=== PATIENT | male | born 1955 | race Caucasian/White ===

== ENCOUNTER 2017-06-14 09:47 | Outpatient (CLI) | payer BC ==
[2017-06-14] MEDS ORDERED: METO25TA3 PO (13:31)
[2017-06-14] MEDS ORDERED: LOSA25TA3 PO (13:31)
[2017-06-14] MEDS ORDERED: SIMV10TA2 PO (13:31)
== END 2017-06-14 10:47 | disposition home or self-care (01) ==
LOC: SRD 09:47
PROVIDERS: ATTEND Family Medicine
DX: J90 Pleural effusion, not elsewhere classified (principal); J44.9 Chronic obstructive pulmonary disease, unspecified; Z98.890 Other specified postprocedural states
CPT/HCPCS: 71046-TC; 74018

== ENCOUNTER 2017-06-14 10:47 | Inpatient (IN) | payer BC ==
[~2017-06-14] VITALS: Ht 162.6 cm; Wt 65.3 kg
[2017-06-14 10:57] VITALS: BP_SYST 100
[2017-06-14] MEDS ORDERED: NACL 0.9% 1,000 ML IV ONE (11:15)
[2017-06-14 11:52] LABS: BASOPHILS # (AUTO) 0.1 K/uL (0.0-0.2); BASOPHILS % (AUTO) 1.4 % (0.0-2.0); EOSINOPHILS # (AUTO) 0.4 K/uL (0.0-0.4); EOSINOPHILS % (AUTO) 7.9 % (0.0-4.0); HEMATOCRIT 35.6 % (36-54); HEMOGLOBIN 11.4 g/dL (14.0-18.0); LYMPHOCYTES # (AUTO) 0.8 K/uL (1.0-5.5); LYMPHOCYTES % (AUTO) 14.7 % (20.5-51.5); MEAN CORPUSCULAR HEMOGLOBIN 26 pg (27-31); MEAN CORPUSCULAR HGB CONC 32 % (32-36); MEAN CORPUSCULAR VOLUME 81 fL (79.0-98.0); MONOCYTES # (AUTO) 0.7 K/uL (0.0-1.0); MONOCYTES % (AUTO) 12.7 % (1.7-9.3); NEUTROPHILS # (AUTO) 3.6 K/uL (1.8-7.7); NEUTROPHILS % (AUTO) 63.3 % (40.0-70.0); PLATELET COUNT (AUTO) 252 K/uL (130-430); RED BLOOD CELL COUNT(AUTO) 4.42 MIL/uL (4.2-6.2); RED CELL DISTRIBUTION WIDTH 14.2 % (9.0-15.0); WHITE BLOOD COUNT (AUTO) 5.6 K/uL (4.8-10.8)
[2017-06-14 11:53] LABS: CALCIUM 10.5 mg/dL (8.4-11.0); CREATININE 2.98 mg/dL (0.55-1.30); POTASSIUM 4.5 mmol/L (3.5-5.1)
[2017-06-14 11:56] LABS: INR 2.4 (0.80-1.20); PROTHROMBIN TIME 24.4 SECS (9.5-12.5)
[2017-06-14 11:57] LABS: ALBUMIN 2.8 g/dL (3.4-4.8); TOTAL BILIRUBIN 0.2 mg/dL (0.0-1.0)
[2017-06-14] MEDS ORDERED: METO25TA3 PO (13:31)
[2017-06-14] MEDS ORDERED: LOSA25TA3 PO (13:31)
[2017-06-14] MEDS ORDERED: SIMV10TA2 PO (13:31)
[2017-06-14] MEDS ORDERED: MORPHINE 2 MG/ML INJ. SYRINGE IVP PRN (13:45)
[2017-06-14] MEDS ORDERED: ONDANSETRON HCL 4 MG/2 ML VIAL IVP PRN (14:00)
[2017-06-14 14:24] LABS: FREE T4 (FREE THYROXINE) 0.8 ng/dL (0.6-1.6); PHOSPHORUS 5.9 mg/dL (2.7-4.5); THYROID STIMULATING HORMONE 5.24 uIu/mL (0.34-4.82)
[2017-06-14 14:38] VITALS: BP_SYST 116
[2017-06-14] MEDS: NACL 0.9% 1,000 ML IV SCH (16:19)
[2017-06-14] MEDS: MORPHINE 2 MG/ML INJ. SYRINGE IVP PRN (16:30)
[2017-06-14] MEDS ORDERED: IPRATROPIUM BROM 0.5 MG/2.5 ML VIAL.NEB (ATROVENT) INH PRN (17:00)
[2017-06-14] MEDS ORDERED: ALBUTEROL SULFATE 0.083% 2.5 MG/3 ML VIAL.NEB INH PRN (17:00)
[2017-06-14 17:43] LABS: BILIRUBIN,URINE NEGATIVE (NEGATIVE); BLOOD, URINE NEGATIVE (NEGATIVE); CLARITY/URINE CLEAR (CLEAR); COLOR,URINE YELLOW (YELLOW); GLUCOSE,URINE NEGATIVE (NEGATIVE); KETONES,URINE NEGATIVE (NEGATIVE); LEUKOCYTE ESTERASE ,URINE NEGATIVE (NEGATIVE); NITRITE, URINE NEGATIVE (NEGATIVE); PH,URINE 5.5 (5.0-8.0); PROTEIN URINE NEGATIVE (NEGATIVE); UROBILINOGEN,URINE 0.2 (0.2-1.0)
[2017-06-14] MEDS ORDERED: ALBUTEROL SULFATE 0.083% 2.5 MG/3 ML VIAL.NEB INH ONE (17:47)
[2017-06-14] MEDS ORDERED: IPRATROPIUM BROM 0.5 MG/2.5 ML VIAL.NEB (ATROVENT) INH ONE (17:48)
[2017-06-14 17:53] VITALS: BP_SYST 116
[2017-06-14 20:00] VITALS: BP_SYST 101
[2017-06-14] MEDS: IPRATROPIUM BROM 0.5 MG/2.5 ML VIAL.NEB (ATROVENT) INH SCH (20:55)
[2017-06-14] MEDS: ALBUTEROL SULFATE 0.083% 2.5 MG/3 ML VIAL.NEB INH SCH (20:55)
[2017-06-14] MEDS ORDERED: ALBUTEROL SULFATE 0.083% 2.5 MG/3 ML VIAL.NEB INH SCH (21:00)
[2017-06-14] MEDS: WARFARIN SODIUM 7.5 MG TABLET PO SCH (21:14)
[2017-06-14] MEDS: DOCUSATE SODIUM 100 MG CAPSULE PO SCH (21:15)
[2017-06-14] MEDS: ZOLPIDEM TARTRATE 5 MG TABLET PO PRN (21:15)
[2017-06-15 00:04] VITALS: BP_SYST 126
[2017-06-15 04:12] LABS: HEMOGLOBIN A1C 5.5 % (4.8-5.6)
[2017-06-15 06:21] LABS: BASOPHILS # (AUTO) 0.1 K/uL (0.0-0.2); BASOPHILS % (AUTO) 1.3 % (0.0-2.0); EOSINOPHILS # (AUTO) 0.4 K/uL (0.0-0.4); HEMATOCRIT 31.9 % (36-54); HEMOGLOBIN 10.1 g/dL (14.0-18.0); LYMPHOCYTES # (AUTO) 0.7 K/uL (1.0-5.5); LYMPHOCYTES % (AUTO) 16.3 % (20.5-51.5); MEAN CORPUSCULAR HEMOGLOBIN 25 pg (27-31); MEAN CORPUSCULAR HGB CONC 32 % (32-36); MEAN CORPUSCULAR VOLUME 80 fL (79.0-98.0); MONOCYTES # (AUTO) 0.7 K/uL (0.0-1.0); MONOCYTES % (AUTO) 15.9 % (1.7-9.3); NEUTROPHILS # (AUTO) 2.7 K/uL (1.8-7.7); NEUTROPHILS % (AUTO) 58.5 % (40.0-70.0); PLATELET COUNT (AUTO) 215 K/uL (130-430); RED BLOOD CELL COUNT(AUTO) 3.97 MIL/uL (4.2-6.2); RED CELL DISTRIBUTION WIDTH 13.8 % (9.0-15.0); WHITE BLOOD COUNT (AUTO) 4.6 K/uL (4.8-10.8)
[2017-06-15] MEDS: NACL 0.9% 1,000 ML IV SCH (06:52)
[2017-06-15 07:00] LABS: ALBUMIN 2.5 g/dL (3.4-4.8); CALCIUM 9.6 mg/dL (8.4-11.0); CREATININE 2.11 mg/dL (0.55-1.30); POTASSIUM 4.6 mmol/L (3.5-5.1); TOTAL BILIRUBIN 0.2 mg/dL (0.0-1.0)
[2017-06-15 07:39] LABS: INR 2.5 (0.80-1.20); PROTHROMBIN TIME 26.1 SECS (9.5-12.5)
[2017-06-15] MEDS: IPRATROPIUM BROM 0.5 MG/2.5 ML VIAL.NEB (ATROVENT) INH SCH ×3 (07:57→20:18)
[2017-06-15] MEDS: ALBUTEROL SULFATE 0.083% 2.5 MG/3 ML VIAL.NEB INH SCH ×3 (07:57→20:18)
[2017-06-15 08:05] VITALS: BP_SYST 126
[2017-06-15] MEDS: DOCUSATE SODIUM 100 MG CAPSULE PO SCH ×2 (09:54→20:40)
[2017-06-15] MEDS: TAMSULOSIN HCL 0.4 MG CAP PO SCH (09:54)
[2017-06-15] MEDS ORDERED: *PPN PER PHARMACY XX PRN (11:45)
[2017-06-15] MEDS ORDERED: DEXTROSE 50% JECT 50 ML DISP.SYRIN IVP PRN (11:45)
[2017-06-15] MEDS ORDERED: INSULIN REGULAR, HUMAN 100 UNITS/ML, 10 ML VIAL (novoLIN R) SUBCUT PRN (11:45)
[2017-06-15 12:12] VITALS: BP_SYST 118
[2017-06-15 13:07] LABS: T4 (THYROXINE) 8.2 ug/dL (4.5-12.0)
[2017-06-15 16:00] VITALS: BP_SYST 122
[2017-06-15] MEDS: WARFARIN SODIUM 7.5 MG TABLET PO SCH (18:05)
[2017-06-15 20:32] VITALS: BP_SYST 116
[2017-06-15] MEDS: MORPHINE 2 MG/ML INJ. SYRINGE IVP PRN (20:41)
[2017-06-15] MEDS: ZOLPIDEM TARTRATE 5 MG TABLET PO PRN (21:35)
[2017-06-16 00:10] VITALS: BP_SYST 127
[2017-06-16 06:12] LABS: EOSINOPHILS # (AUTO) 0.3 K/uL (0.0-0.4); EOSINOPHILS % (AUTO) 7.5 % (0.0-4.0); HEMATOCRIT 31.2 % (36-54); HEMOGLOBIN 10.1 g/dL (14.0-18.0); LYMPHOCYTES # (AUTO) 0.7 K/uL (1.0-5.5); LYMPHOCYTES % (AUTO) 16.7 % (20.5-51.5); MEAN CORPUSCULAR HEMOGLOBIN 27 pg (27-31); MEAN CORPUSCULAR HGB CONC 32 % (32-36); MEAN CORPUSCULAR VOLUME 82 fL (79.0-98.0); MONOCYTES # (AUTO) 0.6 K/uL (0.0-1.0); MONOCYTES % (AUTO) 13.8 % (1.7-9.3); NEUTROPHILS # (AUTO) 2.4 K/uL (1.8-7.7); PLATELET COUNT (AUTO) 250 K/uL (130-430); RED CELL DISTRIBUTION WIDTH 13.8 % (9.0-15.0)
[2017-06-16 06:49] LABS: ALBUMIN 2.5 g/dL (3.4-4.8); CALCIUM 9.6 mg/dL (8.4-11.0); CREATININE 1.68 mg/dL (0.55-1.30); PHOSPHORUS 4.6 mg/dL (2.7-4.5); POTASSIUM 4.3 mmol/L (3.5-5.1); TOTAL BILIRUBIN 0.2 mg/dL (0.0-1.0)
[2017-06-16 07:19] LABS: INR 3.2 (0.80-1.20); PROTHROMBIN TIME 32.5 SECS (9.5-12.5)
[2017-06-16] MEDS ORDERED: D5NS 1,000 ML IV SCH (08:00)
[2017-06-16] MEDS: ALBUTEROL SULFATE 0.083% 2.5 MG/3 ML VIAL.NEB INH SCH ×3 (08:12→20:19)
[2017-06-16] MEDS: IPRATROPIUM BROM 0.5 MG/2.5 ML VIAL.NEB (ATROVENT) INH SCH ×3 (08:12→20:19)
[2017-06-16 08:37] VITALS: BP_SYST 131
[2017-06-16] MEDS: DOCUSATE SODIUM 100 MG CAPSULE PO SCH ×2 (09:59→21:00)
[2017-06-16] MEDS: TAMSULOSIN HCL 0.4 MG CAP PO SCH (09:59)
[2017-06-16 12:00] VITALS: BP_SYST 145
[2017-06-16 16:00] VITALS: BP_SYST 142
[2017-06-16] MEDS: MORPHINE 2 MG/ML INJ. SYRINGE IVP PRN (18:26)
[2017-06-16] MEDS: WARFARIN SODIUM 4 MG TABLET PO SCH (18:38)
[2017-06-16] MEDS: TPN PERIPHERAL 0.0001 ML, SODIUM ACETATE 40 MEQ, POTASSIUM CHLORIDE 20 MEQ, MAGNESIUM S... IV SCH ×8 (18:40)
[2017-06-16 20:04] VITALS: BP_SYST 127
[2017-06-16] MEDS: ZOLPIDEM TARTRATE 5 MG TABLET PO PRN (21:07)
[2017-06-16] MEDS: ACETAMINOPHEN 325 MG TABLET PO PRN (21:11)
[2017-06-17 00:02] VITALS: BP_SYST 122
[2017-06-17] MEDS: MORPHINE 2 MG/ML INJ. SYRINGE IVP PRN (04:45)
[2017-06-17 06:08] LABS: CALCIUM 9.4 mg/dL (8.4-11.0); CREATININE 1.48 mg/dL (0.55-1.30); PHOSPHORUS 4.9 mg/dL (2.7-4.5); POTASSIUM 3.8 mmol/L (3.5-5.1)
[2017-06-17 06:23] LABS: PROTHROMBIN TIME 31.2 SECS (9.5-12.5)
[2017-06-17 06:36] LABS: BASOPHILS % (AUTO) 1.2 % (0.0-2.0); EOSINOPHILS # (AUTO) 0.3 K/uL (0.0-0.4); EOSINOPHILS % (AUTO) 8.1 % (0.0-4.0); HEMATOCRIT 30.1 % (36-54); HEMOGLOBIN 9.7 g/dL (14.0-18.0); LYMPHOCYTES # (AUTO) 0.5 K/uL (1.0-5.5); LYMPHOCYTES % (AUTO) 14.5 % (20.5-51.5); MEAN CORPUSCULAR HEMOGLOBIN 26 pg (27-31); MEAN CORPUSCULAR HGB CONC 32 % (32-36); MEAN CORPUSCULAR VOLUME 80 fL (79.0-98.0); MONOCYTES # (AUTO) 0.5 K/uL (0.0-1.0); MONOCYTES % (AUTO) 13.1 % (1.7-9.3); NEUTROPHILS # (AUTO) 2.4 K/uL (1.8-7.7); NEUTROPHILS % (AUTO) 63.1 % (40.0-70.0); PLATELET COUNT (AUTO) 276 K/uL (130-430); RED BLOOD CELL COUNT(AUTO) 3.74 MIL/uL (4.2-6.2); RED CELL DISTRIBUTION WIDTH 13.8 % (9.0-15.0); WHITE BLOOD COUNT (AUTO) 3.7 K/uL (4.8-10.8)
[2017-06-17 07:50] VITALS: BP_SYST 130
[2017-06-17] MEDS: ALBUTEROL SULFATE 0.083% 2.5 MG/3 ML VIAL.NEB INH SCH (08:31)
[2017-06-17] MEDS: IPRATROPIUM BROM 0.5 MG/2.5 ML VIAL.NEB (ATROVENT) INH SCH ×3 (08:32→21:00)
[2017-06-17] MEDS: DOCUSATE SODIUM 100 MG CAPSULE PO SCH ×2 (10:03→20:47)
[2017-06-17] MEDS: TAMSULOSIN HCL 0.4 MG CAP PO SCH (10:03)
[2017-06-17 11:42] VITALS: BP_SYST 112
[2017-06-17] MEDS: ACETAMINOPHEN 325 MG TABLET PO PRN (12:23)
[2017-06-17] MEDS: HYDROcodone/ACETAMIN 5-325 MG TAB (NORCO/ VICODIN) PO PRN (14:54)
[2017-06-17] MEDS: LevALBUTEROL HCL 1.25 MG/0.5 ML *CONC.* VIAL.NEB (XOPENEX CONC.) INH SCH ×2 (15:37→21:00)
[2017-06-17 16:21] VITALS: BP_SYST 107
[2017-06-17] MEDS: PIPERACILLIN/TAZO 2.25G/DEX-IS 50 ML IV SCH ×2 (18:13→23:13)
[2017-06-17] MEDS: WARFARIN SODIUM 4 MG TABLET PO SCH (18:15)
[2017-06-17] MEDS: TPN PERIPHERAL 0.0001 ML, SODIUM ACETATE 40 MEQ, POTASSIUM CHLORIDE 20 MEQ, MAGNESIUM S... IV SCH ×8 (18:25)
[2017-06-17 20:00] VITALS: BP_SYST 117; BP_SYST 89; BP_SYST 95
[2017-06-17] MEDS: ZOLPIDEM TARTRATE 5 MG TABLET PO PRN (20:51)
[2017-06-18 00:04] VITALS: BP_SYST 126
[2017-06-18] MEDS: PIPERACILLIN/TAZO 2.25G/DEX-IS 50 ML IV SCH ×4 (05:12→23:14)
[2017-06-18 06:07] LABS: EOSINOPHILS # (AUTO) 0.3 K/uL (0.0-0.4); EOSINOPHILS % (AUTO) 7.8 % (0.0-4.0); HEMATOCRIT 32.3 % (36-54); HEMOGLOBIN 10.4 g/dL (14.0-18.0); LYMPHOCYTES # (AUTO) 0.6 K/uL (1.0-5.5); LYMPHOCYTES % (AUTO) 13.1 % (20.5-51.5); MEAN CORPUSCULAR HEMOGLOBIN 26 pg (27-31); MEAN CORPUSCULAR HGB CONC 32 % (32-36); MEAN CORPUSCULAR VOLUME 82 fL (79.0-98.0); MONOCYTES # (AUTO) 0.5 K/uL (0.0-1.0); MONOCYTES % (AUTO) 11.2 % (1.7-9.3); NEUTROPHILS # (AUTO) 2.9 K/uL (1.8-7.7); NEUTROPHILS % (AUTO) 66.9 % (40.0-70.0); PLATELET COUNT (AUTO) 266 K/uL (130-430); RED BLOOD CELL COUNT(AUTO) 3.94 MIL/uL (4.2-6.2); RED CELL DISTRIBUTION WIDTH 13.6 % (9.0-15.0); WHITE BLOOD COUNT (AUTO) 4.3 K/uL (4.8-10.8)
[2017-06-18 06:11] LABS: ANION GAP 6 (5-15); CALCIUM 9.6 mg/dL (8.4-11.0); CHLORIDE 100 mmol/L (98-107); CREATININE 1.68 mg/dL (0.55-1.30); GLUCOSE 113 mg/dL (70-99); POTASSIUM 4.1 mmol/L (3.5-5.1); SODIUM SERUM 133 mmol/L (136-145); UREA NITROGEN, BLOOD 17 mg/dL (8-21)
[2017-06-18 07:02] LABS: GFR AFRICAN AMERICAN 54 mL/min (>90)
[2017-06-18 07:15] LABS: INR 1.9 (0.80-1.20)
[2017-06-18 07:30] LABS: PROTHROMBIN TIME 19.8 SECS (9.5-12.5)
[2017-06-18 08:00] VITALS: BP_SYST 114
[2017-06-18] MEDS: DOCUSATE SODIUM 100 MG CAPSULE PO SCH ×2 (09:00→21:00)
[2017-06-18] MEDS: TAMSULOSIN HCL 0.4 MG CAP PO SCH (10:13)
[2017-06-18 11:52] VITALS: BP_SYST 119
[2017-06-18] MEDS: NACL 0.9% 1,000 ML IV SCH (15:23)
[2017-06-18 16:00] VITALS: BP_SYST 112
[2017-06-18] MEDS: ACETAMINOPHEN 325 MG TABLET PO PRN (17:03)
[2017-06-18] MEDS ORDERED: SODIUM ACETATE IV SCH ×8 (18:00)
[2017-06-18] MEDS ORDERED: TPN PERIPHERAL IV SCH ×8 (18:00)
[2017-06-18] MEDS ORDERED: WARFARIN SODIUM 5 MG TABLET PO SCH (18:00)
[2017-06-18] MEDS ORDERED: POTASSIUM CHLORIDE IV SCH ×8 (18:00)
[2017-06-18] MEDS ORDERED: [UNRECOGNIZED DRUG - OTHER] IV SCH ×8 (18:00)
[2017-06-18 20:00] VITALS: BP_SYST 129
[2017-06-18] MEDS: LevALBUTEROL HCL 1.25 MG/0.5 ML *CONC.* VIAL.NEB (XOPENEX CONC.) INH SCH (20:18)
[2017-06-18] MEDS: IPRATROPIUM BROM 0.5 MG/2.5 ML VIAL.NEB (ATROVENT) INH SCH (20:18)
[2017-06-18] MEDS: ZOLPIDEM TARTRATE 5 MG TABLET PO PRN (21:06)
[2017-06-19 00:15] VITALS: BP_SYST 130
[2017-06-19] MEDS: HYDROcodone/ACETAMIN 5-325 MG TAB (NORCO/ VICODIN) PO PRN (02:26)
[2017-06-19] MEDS: NACL 0.9% 1,000 ML IV SCH ×2 (02:30→05:26)
[2017-06-19] MEDS: PIPERACILLIN/TAZO 2.25G/DEX-IS 50 ML IV SCH ×2 (05:25→11:47)
[2017-06-19 05:28] LABS: INR 1.9 (0.80-1.20); PROTHROMBIN TIME 19.7 SECS (9.5-12.5)
[2017-06-19 05:30] LABS: EOSINOPHILS # (AUTO) 0.4 K/uL (0.0-0.4); EOSINOPHILS % (AUTO) 10.4 % (0.0-4.0); HEMATOCRIT 31.3 % (36-54); HEMOGLOBIN 9.9 g/dL (14.0-18.0); LYMPHOCYTES # (AUTO) 0.6 K/uL (1.0-5.5); LYMPHOCYTES % (AUTO) 16.4 % (20.5-51.5); MEAN CORPUSCULAR HEMOGLOBIN 26 pg (27-31); MEAN CORPUSCULAR HGB CONC 32 % (32-36); MEAN CORPUSCULAR VOLUME 82 fL (79.0-98.0); MONOCYTES # (AUTO) 0.5 K/uL (0.0-1.0); MONOCYTES % (AUTO) 13.4 % (1.7-9.3); NEUTROPHILS # (AUTO) 2.4 K/uL (1.8-7.7); NEUTROPHILS % (AUTO) 58.8 % (40.0-70.0); PLATELET COUNT (AUTO) 227 K/uL (130-430); RED BLOOD CELL COUNT(AUTO) 3.82 MIL/uL (4.2-6.2); RED CELL DISTRIBUTION WIDTH 13.6 % (9.0-15.0); WHITE BLOOD COUNT (AUTO) 3.9 K/uL (4.8-10.8)
[2017-06-19 05:33] LABS: CALCIUM 9.3 mg/dL (8.4-11.0); CREATININE 1.68 mg/dL (0.55-1.30); PHOSPHORUS 4.5 mg/dL (2.7-4.5)
[2017-06-19] MEDS: IPRATROPIUM BROM 0.5 MG/2.5 ML VIAL.NEB (ATROVENT) INH SCH ×2 (07:30→15:11)
[2017-06-19] MEDS: LevALBUTEROL HCL 1.25 MG/0.5 ML *CONC.* VIAL.NEB (XOPENEX CONC.) INH SCH ×2 (07:30→15:11)
[2017-06-19] MEDS: TAMSULOSIN HCL 0.4 MG CAP PO SCH (08:35)
[2017-06-19] MEDS: DOCUSATE SODIUM 100 MG CAPSULE PO SCH (08:35)
[2017-06-19 08:44] VITALS: BP_SYST 124
[2017-06-19 12:17] VITALS: BP_SYST 134
[2017-06-19] MEDS ORDERED: COSYNTROPIN 0.25 MG/ML VIAL IVP ONE (13:00)
[2017-06-19 15:12] VITALS: BP_SYST 134
[2017-06-19] MEDS ORDERED: ZOSPM2 IV (15:27)
== END 2017-06-19 16:00 | DRG 177 ==
LOC: SED 10:47 → SMU 13:41 → STU 06-17 14:20 → SMU 06-19 09:27
PROVIDERS: ADMIT Family Medicine; ATTEND Family Medicine
DX: J69.0 Pneumonitis due to inhalation of food and vomit (principal); N17.0 Acute kidney failure with tubular necrosis; D68.61 Antiphospholipid syndrome; Q60.0 Renal agenesis, unilateral; J90 Pleural effusion, not elsewhere classified; C34.90 Malignant neoplasm of unspecified part of unspecified bronchus or lung; E87.1 Hypo-osmolality and hyponatremia; E86.0 Dehydration; R62.7 Adult failure to thrive; N18.9 Chronic kidney disease, unspecified; I12.9 Hypertensive chronic kidney disease with stage 1 through stage 4 chronic kidney disease, or unspecified chronic kidney disease; J44.9 Chronic obstructive pulmonary disease, unspecified; I95.1 Orthostatic hypotension; T45.515A Adverse effect of anticoagulants, initial encounter; M10.9 Gout, unspecified; E78.5 Hyperlipidemia, unspecified; Z79.899 Other long term (current) drug therapy; Z90.2 Acquired absence of lung [part of]; Y92.89 Other specified places as the place of occurrence of the external cause; Z87.891 Personal history of nicotine dependence; Z86.73 Personal history of transient ischemic attack (TIA), and cerebral infarction without residual deficits
CPT/HCPCS: 36415; 71045; 71250-TC; 72195; 74018; 74181; 76700-TC; 80048; 80053; 80061; 81003; 82150-TC; 82533; 82962; 83036; 83690-TC; 83735-TC; 83880; 84100-TC; 84436; 84439; 84443-TC; 84478-TC; 84479; 84484; 84550-TC; 85025; 85610-TC; 85730-TC; 87081; 93005; 93975; 94640; 96360; 97110-GP; 97116-GP; 97530-GP; 99285; J0834; J1815; J2270; J2405; J2543; J3475; J3480; J7030; J7042

== ENCOUNTER 2017-07-12 16:18 | Outpatient (CLI) | payer BC ==
[~2017-07-12 16:18] MED LIST: LOSA25TA3 PO; METO25TA3 PO; SIMV10TA2 PO; ZOSPM2 IV
== END 2017-07-12 17:47 | disposition home or self-care (01) ==
LOC: SRD 16:18
PROVIDERS: ATTEND Family Medicine
DX: R42 Dizziness and giddiness (principal); R91.8 Other nonspecific abnormal finding of lung field
CPT/HCPCS: 71046-TC; 93880

== ENCOUNTER 2017-08-19 11:39 | Outpatient (CLI) | payer BC | END 2017-08-19 17:48 | disposition home or self-care (01) | LOC: SRD 11:39 | DX: C34.90 Malignant neoplasm of unspecified part of unspecified bronchus or lung (principal) | CPT/HCPCS: 71046-TC ==

== ENCOUNTER 2017-10-18 11:35 | Outpatient (CLI) | payer BC | END 2017-10-18 21:17 | disposition home or self-care (01) | LOC: SRD 11:35 | PROVIDERS: ATTEND Family Medicine | DX: C34.91 Malignant neoplasm of unspecified part of right bronchus or lung (principal) | CPT/HCPCS: 71046-TC ==

== ENCOUNTER 2017-11-04 14:46 | Outpatient (CLI) | payer BC | END 2017-11-04 20:37 | disposition home or self-care (01) | LOC: SCT 14:46 | DX: C34.90 Malignant neoplasm of unspecified part of unspecified bronchus or lung (principal); J44.9 Chronic obstructive pulmonary disease, unspecified; E78.5 Hyperlipidemia, unspecified; M10.9 Gout, unspecified; Z87.891 Personal history of nicotine dependence | CPT/HCPCS: 71250-TC ==

== ENCOUNTER 2018-02-22 12:55 | Outpatient (CLI) | payer BC | END 2018-02-22 20:47 | disposition home or self-care (01) | LOC: SRD 12:55 | PROVIDERS: ATTEND Family Medicine | DX: M19.011 Primary osteoarthritis, right shoulder (principal) | CPT/HCPCS: 73030 ==

== ENCOUNTER 2018-05-19 09:13 | Outpatient (CLI) | payer BC ==
[2018-05-19] MEDS ORDERED: DIATR MEGLU/DIATRIZ SOD 30 ML SOLUTION PO ONE (09:39)
[2018-05-19] MEDS ORDERED: IOHEXOL 100 ML IV ONE (11:54)
== END 2018-05-19 21:12 | disposition home or self-care (01) ==
LOC: SCT 09:13
PROVIDERS: ATTEND Family Medicine
DX: K40.90 Unilateral inguinal hernia, without obstruction or gangrene, not specified as recurrent (principal); N26.1 Atrophy of kidney (terminal); D68.61 Antiphospholipid syndrome; D50.0 Iron deficiency anemia secondary to blood loss (chronic); C34.31 Malignant neoplasm of lower lobe, right bronchus or lung
CPT/HCPCS: 71260; 74177; Q9964; Q9967